=== PATIENT | female | born 1960 | race African-American/Black ===

== ENCOUNTER 2018-04-11 22:16 | Inpatient (IN) ==
[2018-04-11] MEDS ORDERED: ALUM/MAG/SIMETH/LIDO VISC 1:1 30 ML BOTTLE PO STA (23:29)
[2018-04-11] MEDS ORDERED: PANTOPRAZOLE 40 MG VIAL IV STA (23:29)
[2018-04-11] MEDS ORDERED: ONDANSETRON 4 MG/2 ML VIAL IV STA (23:29)
[2018-04-11] MEDS ORDERED: KETOROLAC 30 MG/1 ML VIAL IV STA (23:29)
[2018-04-11] MEDS ORDERED: SODIUM CHLORIDE 0.9% 500 ML IV STA (23:29)
[2018-04-12 00:28] LABS: Basophils % 0.4 % (0.0-0.8); Eosinophils % 0.4 % (0.00-10.9); Hematocrit 39.6 VOL% (35.7-47.0); Hemoglobin 12.7 GM/DL (12.0-16.0); Immature Granulocytes % 0.3 %; Immature Granulocytes Absolute 0.02 #; Lymphocytes # 2.2 10*3/uL (1.4-4.0); Lymphocytes % 28.2 % (21.3-54.2); Mean Corpuscular HGB Conc 32.1 GM/DL (32-36); Mean Corpuscular Hemoglobin 28 PG (27-34); Mean Corpuscular Volume 88.4 FL (87-102); Mean Platelet Volume 10.6 FL (9.6-12.0); Monocytes # 0.6 10*3/uL (0.11-0.8); Monocytes % 7.5 % (1.7-12.7); Neutrophils % 63.2 % (38.7-73.9); Platelet Count 319 T/CUMM (130-400); Red Blood Count 4.48 MC/CUMM (3.8-5.5); Red Cell Distribution Width 13.9 % (9.3-17.3); White Blood Count 7.9 T/CUMM (4-12)
[2018-04-12 00:40] LABS: Albumin 3.3 G/DL (3.4-5.0); Bilirubin,Total 0.4 MG/DL (0.2-1.0); Calcium 9.2 MG/DL (8.5-10.1); Potassium 3.5 MMOL/L (3.5-5.1)
[2018-04-12 01:05] LABS: Amorphous Crystals,Urine Occasional /HPF (Few); Apearance,Urine CLOUDY (Clear); Bilirubin,Urine Moderate mg/dL (Negative); Blood, Urine Negative (Negative); Glucose,Urine (UA) Negative (Negative); Ketones,Urine Negative (Negative); Mucus,Urine Occasional /LPF (Occasional); Nitrite,Urine Negative (Negative); Protein,Urine Negative; Squamous Epithelial Cell,Urine Occasional /HPF (0-10); Urine Color Yellow (Yellow); Urine Specific Gravity 1.023 (1.001-1.035); Urine Urobilinogen < 2.0 EU/DL (0.2-1.0); WBC,Urine 3 /HPF (0-6)
[2018-04-12 01:22] LABS: Band Neutrophils 1 % (0-10); Eosinophils 2 % (0-10); Lymphocytes 26 % (20-55); Segmented Neutrophils 62 % (50-85)
[2018-04-12 01:23] LABS: Platelet Estimate Normal; Total Cells Counted 100
[2018-04-12] MEDS ORDERED: ACETAMINOPHEN 325 MG TABLET PO PRN (02:31)
[2018-04-12] MEDS: SODIUM CHLORIDE 0.9% 1,000 ML IV SCH ×3 (03:31→16:43)
[2018-04-12 05:36] LABS: Basophils % 0.3 % (0.0-0.8); Eosinophils # 0.1 10*3/uL (0.0-0.87); Eosinophils % 0.9 % (0.00-10.9); Hematocrit 36.2 VOL% (35.7-47.0); Hemoglobin 11.8 GM/DL (12.0-16.0); Immature Granulocytes % 0.4 %; Immature Granulocytes Absolute 0.03 #; Lymphocytes # 2.5 10*3/uL (1.4-4.0); Lymphocytes % 36.8 % (21.3-54.2); Mean Corpuscular HGB Conc 32.6 GM/DL (32-36); Mean Corpuscular Hemoglobin 29 PG (27-34); Mean Corpuscular Volume 87.9 FL (87-102); Mean Platelet Volume 10.4 FL (9.6-12.0); Monocytes # 0.6 10*3/uL (0.11-0.8); Monocytes % 8.6 % (1.7-12.7); Neutrophils # 3.6 10*3/uL (1.4-7.4); Platelet Count 286 T/CUMM (130-400); Red Blood Count 4.12 MC/CUMM (3.8-5.5); White Blood Count 6.7 T/CUMM (4-12)
[2018-04-12] MEDS ORDERED: cefOXitin 2,000 MG in SYRINGE 1 EACH IV ONE (06:54)
[2018-04-12 07:03] LABS: Albumin 2.9 G/DL (3.4-5.0); Bilirubin,Total 0.68 MG/DL (0.2-1.0); Calcium 8.8 MG/DL (8.5-10.1); Osmolality,Calculated 284.8 MOS/KG (273-304); Potassium 3.4 MMOL/L (3.5-5.1); Total Protein 6.6 G/DL (6.4-8.3)
[2018-04-12] MEDS ORDERED: LIDOCAINE 1%/EPI INJ 20 ML VIAL ONE (07:55)
[2018-04-12] MEDS ORDERED: BUPIVACAINE MPF 0.25% /EPI 30 ML VIAL ONE (07:55)
[2018-04-12] MEDS ORDERED: TISSUE ADHESIVE 1 EACH APPLICATOR TOP ONE (07:55)
[2018-04-12] MEDS ORDERED: PANTOPRAZOLE 40 MG VIAL IV SCH (09:00)
[2018-04-12] MEDS ORDERED: PROPOFOL 200 MG/20 ML VIAL IV ONE (09:27)
[2018-04-12] MEDS ORDERED: MIDAZOLAM 2 MG/2 ML VIAL ONE (09:28)
[2018-04-12] MEDS ORDERED: SEVOFLURANE 1 UNIT/15 MINUTE INH ONE (09:28)
[2018-04-12] MEDS ORDERED: PHENYLEPHRINE 1 MG/10 ML SYRINGE IV ONE (09:29)
[2018-04-12] MEDS ORDERED: fentaNYL 100 MCG/2 ML VIAL ONE (09:29)
[2018-04-12] MEDS ORDERED: GLYCOPYRROLATE 0.4 MG/2 ML VIAL ONE (09:29)
[2018-04-12] MEDS ORDERED: NEOSTIGMINE 10 MG/10 ML VIAL ONE (09:29)
[2018-04-12] MEDS ORDERED: ROCURONIUM 100 MG/10 ML VIAL IV ONE (09:29)
[2018-04-12] MEDS ORDERED: ONDANSETRON 4 MG/2 ML VIAL ONE (09:29)
[2018-04-12] MEDS ORDERED: SUCCINYLCHOLINE 200 MG/10 ML VIAL ONE (09:29)
[2018-04-12] MEDS ORDERED: METHOCARBAMOL 750 MG TABLET PO PRN (10:24)
[2018-04-12] MEDS: ONDANSETRON 4 MG/2 ML VIAL IV PRN (10:49)
[2018-04-12] MEDS: HYDROmorphone 2 MG/1 ML VIAL IV PRN (10:49)
[2018-04-12] MEDS: ENOXAPARIN 40 MG/0.4 ML SYRINGE SUBCUT SCH (11:44)
[2018-04-12] MEDS: PANTOPRAZOLE 40 MG TABLET PO SCH (11:44)
[2018-04-13] MEDS: HYDROmorphone 2 MG/1 ML VIAL IV PRN (01:45)
[2018-04-13] MEDS: ONDANSETRON 4 MG/2 ML VIAL IV PRN (01:46)
[2018-04-13] MEDS: SODIUM CHLORIDE 0.9% 1,000 ML IV SCH (01:48)
[2018-04-13 05:59] LABS: Basophils % 0.2 % (0.0-0.8); Eosinophils # 0.1 10*3/uL (0.0-0.87); Eosinophils % 1.6 % (0.00-10.9); Hematocrit 35.6 VOL% (35.7-47.0); Hemoglobin 11.1 GM/DL (12.0-16.0); Immature Granulocytes % 0.2 %; Immature Granulocytes Absolute 0.01 #; Lymphocytes # 1.1 10*3/uL (1.4-4.0); Lymphocytes % 21.7 % (21.3-54.2); Mean Corpuscular HGB Conc 31.2 GM/DL (32-36); Mean Corpuscular Hemoglobin 28 PG (27-34); Mean Corpuscular Volume 90.1 FL (87-102); Mean Platelet Volume 10.3 FL (9.6-12.0); Monocytes # 0.4 10*3/uL (0.11-0.8); Monocytes % 8.6 % (1.7-12.7); Neutrophils # 3.3 10*3/uL (1.4-7.4); Neutrophils % 67.7 % (38.7-73.9); Platelet Count 245 T/CUMM (130-400); Red Blood Count 3.95 MC/CUMM (3.8-5.5); White Blood Count 4.9 T/CUMM (4-12)
[2018-04-13 06:19] LABS: Calcium 8.5 MG/DL (8.5-10.1); Osmolality,Calculated 280.3 MOS/KG (273-304); Potassium 4.2 MMOL/L (3.5-5.1)
[2018-04-13] MEDS: ENOXAPARIN 40 MG/0.4 ML SYRINGE SUBCUT SCH (06:45)
[2018-04-13] MEDS ORDERED: LEVOTHYROXINE 125 MCG TABLET PO SCH (07:00)
[2018-04-13 08:00] VITALS: BP 126/69
[2018-04-13] MEDS: PANTOPRAZOLE 40 MG TABLET PO SCH (08:10)
[2018-04-13] MEDS ORDERED: MULTIVITAMIN (CENTRUM) TABLET PO SCH (09:00)
== END 2018-04-13 10:10 | disposition home or self-care (01) | DRG 419 ==
LOC: N.ED 22:16 → N.EDINP 04-12 01:06 → N.3E 04-12 01:31
PROVIDERS: ADMIT Surgery; ATTEND Surgery
PROC: LAPCHOL (2018-04-12 08:25)